=== PATIENT | female | born 1980 | race Caucasian/White ===

== ENCOUNTER 2022-07-15 02:37 | Observation (INO) ==
[2022-07-15] MEDS ORDERED: ONDANSETRON INJ 2 MG/ML 2 ML VIAL IV STA (03:01)
[2022-07-15] MEDS ORDERED: SODIUM CHLORIDE 0.9% 1000ML 1,000 ML IV SCH ×2 (03:15→14:33)
[2022-07-15] MEDS: MoRPHine SULFATE 4 MG/ML 1 ML CARP\\VIAL IV PRN ×3 (03:20→09:29)
[2022-07-15 03:27] LABS: Appearance Urine Turbid (Clear); Bacteria Urine Automated Negative (Negative); Basophils # (auto) 0.03 K/uL (0-0.2); Basophils % (auto) 0.2 %; Bilirubin Urine Negative (Negative); Blood Urine Negative (Negative); Cast Urine Automated 0 /lpf (0-5); Color Urine Yellow; Eosinophils # (auto) 0.02 K/uL (0-0.50); Eosinophils % (auto) 0.1 %; Glucose Urine UA Negative (Negative); Hematocrit (blood only) 39.7 % (37.0-47.0); Hemoglobin 13.5 g/dl (12.0-16.0); Immature Granulocytes # (auto) 0.05 K/uL (0.01-0.20); Immature Granulocytes % (auto) 0.3 %; Ketones Urine Negative (Negative); Leukocyte Esterase Urine Negative (Negative); Lymphocytes # (auto) 2.21 K/uL (1.2-3.4); Lymphocytes % (auto) 14.3 %; Mean Corpuscular Volume 88.2 fL (80.0-100.0); Mean Platelet Volume 8.9 fL (9.4-12.4); Monocytes % (auto) 6.5 %; Neutrophils # (auto) 12.11 K/uL (1.40-6.50); Neutrophils % (auto) 78.6 %; Nitrite Urine Negative (Negative); Platelet Count 316 K/uL (130-400); Protein Urine Negative (Negative); RBC Urine Automated 0-4 /hpf (0-4); RDW Coefficient of Variation 12.8 % (11.5-14.5); RDW Standard Deviation 41.4 fL (36.4-46.3); Specific Gravity Urine 1.014 (1.000-1.030); Urobilinogen Urine Negative (Negative); WBC Urine Automated 0 /hpf (0-5); White Blood Count 15.42 K/ul (4.8-10.8); pH Urine 8.5 (4.5-7.5)
[2022-07-15 03:43] LABS: Albumin Globulin Ratio 1.7 (0.9-2); Albumin Level 4.1 gm/dl (3.4-5.0); BUN Creatinine Ratio 18.7 (10-20); Bilirubin,Total 0.8 mg/dl (0.2-1.0); Calcium 9.3 mg/dl (8.6-10.3); Creatinine Clr Calc Pharmacy 74.3 ml/min; Est GFR (African American) 73.6 ml/min; Est GFR (Non-African American) 63.5 ml/min; Globulin 2.4 gm/dl (2.5-4.0); Magnesium 2.1 mg/dl (1.7-2.4); Potassium 4.1 mmol/L (3.5-5.1); Total Protein 6.5 gm/dl (6.0-8.3)
[2022-07-15 03:49] LABS: Pregnancy Test, Serum Negative (Negative)
[2022-07-15] MEDS ORDERED: HYDROmorphone INJ 0.5 MG/0.5 ML SYR IV STA ×2 (04:13→06:21)
--- NOTE | 2022-07-15 05:50 | CT Scan Report ---
Exam(s): CT ABDOMEN + PELVIS Without Contrast EXAM: CT Abdomen and Pelvis Without Intravenous Contrast CLINICAL HISTORY: Reason for exam: rlq abd pain. TECHNIQUE: Axial computed tomography images of the abdomen and pelvis without intravenous contrast. Automated exposure control was utilized for the study. A dose lowering technique was utilized adhering to the principles of ALARA. COMPARISON: No relevant prior studies available. FINDINGS: Lung bases: Unremarkable. No mass. No consolidation. ABDOMEN: Liver: Unremarkable. Gallbladder and bile ducts: Unremarkable. No calcified stones. No ductal dilation. Pancreas: Unremarkable. No ductal dilation. Spleen: Unremarkable. No splenomegaly. Adrenals: Unremarkable. No mass. Kidneys and ureters: Unremarkable. No obstructing stones. No hydronephrosis. Stomach and bowel: Unremarkable. No obstruction. No mucosal thickening. PELVIS: Appendix: No findings to suggest acute appendicitis. Bladder: Unremarkable. No stones. Reproductive: Unremarkable as visualized. ABDOMEN and PELVIS: Intraperitoneal space: Unremarkable. No free air. No significant fluid collection. Bones/joints: No acute fracture. No dislocation. Soft tissues: Unremarkable. Vasculature: Unremarkable. No abdominal aortic aneurysm. Lymph nodes: Unremarkable. No enlarged lymph nodes. Tubes, lines and devices: Intrauterine device seen in situ. IMPRESSION: No acute findings in the abdomen or pelvis. Electronically signed by: Chente Vance MD 07/15/22 05:49 AM
--- NOTE | 2022-07-15 06:10 | Ultrasound Report ---
Exam(s): US GALLBLADDER In the Susi 8 and that of the right EXAM: US Abdomen Limited, Gallbladder CLINICAL HISTORY: Reason for exam: elevated lipase. TECHNIQUE: Real-time ultrasound of the right upper quadrant with image documentation. COMPARISON: No relevant prior studies available. FINDINGS: Gallbladder: 3 mm echogenic focus in the gallbladder could represent a polyp. Unable to evaluate ultrasound Henley sign. No gallstones. Common bile duct: CBD caliber measures 3.7 mm. No stones. No dilation. Pancreas: Pancreatic duct caliber measures 2.8 mm in diameter. Right kidney: 3.4 cm diameter focal lesion seen in the right renal cortex which can be further assessed on contrast-enhanced MRI study. The right kidney is normal in size. No hydronephrosis or nephrolithiasis. IMPRESSION: 1. No evidence of acute cholecystitis 2. Suspected gallbladder polyp 3. Focal right renal cortical lesion which can further assessed on contrast-enhanced MRI study 4. Borderline pancreatic ductal prominence. Electronically signed by: Chente Vance MD 07/15/22 06:09 AM
--- NOTE | 2022-07-15 06:34 | Ultrasound Report ---
Exam(s): US PELVIS EXAM: US Pelvis Transabdominal, Complete CLINICAL HISTORY: Reason for exam: right side ab pain, not preg. TECHNIQUE: Real-time complete transabdominal pelvic ultrasound with image documentation. COMPARISON: No relevant prior studies available. FINDINGS: Uterus/cervix: Uterus measures 8.7 cm in length. Normal endometrial stripe thickness, measuring 2.2 mm. No myometrial mass. Right ovary: Right ovary measures 3.2 cm in length and contains a 2.3 cm follicle. Normal blood flow. Left ovary: Left ovary measures 3.2 cm in length and contains a 2.1 cm follicle. Normal blood flow. Free fluid: No free fluid. IMPRESSION: No acute pelvic abnormality identified Electronically signed by: Chente Vance MD 07/15/22 06:33 AM
--- NOTE | 2022-07-15 08:09 | History & Physical Report ---
Date of Service July 15, 2022 Assessment & Plan (1) RLQ abdominal pain: Plan: Patient with 12 hours of severe, acute, focused RLQ pain with anorexia, vomiting, and chills plus leukocytosis. Over-read of noncon CT scan shows prominent appendix. Significant pancreatic enzyme elevations are noted, and likely related to an episode 2-3 weeks ago of restarting semaglutide plus excess alcohol ingestion. Lifestyle factors are certainly present and pt is well aware; I suspect that although it's tempting to suspect acute pancreatitis by her labs and initial imaging, the exam of this patient is extremely consistent with appendicitis, and I think the pancreatitis is a "red tinoco" rather than the issue in this acute 12 hour episode. Not / no ectopic, no evidence of torsion or cyst on R ovary by imaging, exam is inconsistent with PID (no CMT identified) but GC/CT swab collected. General surgery consultation recommended and d/w Dr. Hays. 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 After euthanizing an animal at about 9pm last night and finally feeling able to rest a bit, she noted severe nausea and began vomiting. She also noted that when she had valsalva to vomit that first time, she had involuntary diarrhea at the same time. She tried to continue working a few more hours with ongoing nausea and vomiting, though diarrhea has not recurred. She was able to go home and lie down to fall asleep at midnight. However at 2:30am she was awakened by severe abdominal pain in the R lower quadrant of her abdomen. Considering she had not been home for three straight days and was very tired, she was surprised to have pain bad enough to wake her up, so this worried her. She became concerned that she had appendicitis and presented to ER. The patient was medicated for pain and nausea here, which helped the nausea significantly, but she continues to have pain in the RLQ. The last ingestion was a sip of sofía alicia at 2:15am, and prior to that was dinner at 2030 the prior night. That meal was shared with friends but so far no others have become ill. She did not take her temperature during any of this, but had chills yesterday evening during the hours when she was first noting nausea/diarrhea. She is unaware of any sick contacts. No pain with urination, nor frequency or h ematuria. No unusual ingestions or shared meals with others who have become ill that she knows of. Her recent bowel movements prior to the diarrhea last night were normal. Upon thinking back, she has had R lower back ache and dull pain just behind R hip for maybe 3 weeks that she is unsure is related or not. She has an IUD that results in amenorrhea so no clear LMP, and is sexually active with a male partner. To her belief, they are each monogamous with only each other since their last STD screenings. Her urine HCG here was negative today. No STD testing has been done yet this visit, but she is agreeable to testing. Recent medication changes include use of semaglutide ending about a year ago, then re-starting 23 days ago at 0.25mg and another dose 16 days ago at 0.5mg. She did work physically hard and then drink a significant amount of alcohol 15 days ago, the day after her bigger dose, and felt quite ill the next day (so, now 14 days ago). Symptoms were vomiting, abdominal pain, dull headache. This was memorable to her not just because it was , because it was significantly worse than a usual hangover or the usual effects she might expect to have from that amount of drinking. She also recalls that this was a very unusual opportunity to have a day off, for her, so that evening she went out again despite not feeling well and drank alcohol again. By the next day (Friday) she was well enough to function as normal in her equine clinic. As of 11 days ago, she was seen by her chiropractor Evans Thompson who mentioned that he believed she had ileocecal valve dysfunction based on his exam, and started her on "some digestive enzymes" that she is supposed to take anytime she eats anything that is cooked. The patient is not sure exactly what's in them and does not have the bottle with her today. She has used them inconsistently; usually when she eats dinner at home, not necessarily with lunch which is at work. She does note that her diet is generally poor and consists of whatever fast food or snack food is available at the clinic so she can keep working. She takes a brain-function vitamin. Additionally she uses Phentermine daily, though she ran out of this a week ago. Allergies Allergy/AdvReac Type Severity Reaction Status Date / Time No Known Allergies Allergy Verified 06/10/22 08:28 Home Medications Medication Instructions Recorded Confirmed Type levonorgestrel 21 mcg/24 hours (8 See Rx Instructions .Route .COMPLEX 01/27/19 07/15/22 History yrs) 52 mg intrauterine device (Mirena) calcium carbonate 600 mg-vitamin 1 cap PO DAILY 03/04/19 07/15/22 History D3 12.5 mcg (500 unit) capsule (Calcium 600 with Vitamin D3) ibuprofen 200 mg tablet 200 mg PO Q6H PRN Pain 03/04/19 07/15/22 History methocarbamol 500 mg tablet 500 mg PO TID PRN muscle spasms 03/04/19 07/15/22 History fluticasone propionate 50 1 spray intranasal DAILY PRN 05/04/21 07/15/22 History mcg/actuation nasal allergies spray,suspension albuterol sulfate 90 mcg/actuation 2 puff inhalation .COMPLEX PRN 11/13/21 07/15/22 Rx aerosol inhaler (ProAir HFA) shortness of breath or wheezing #8.5 grams phentermine 37.5 mg tablet 37.5 mg PO DAILY #30 tabs 07/08/22 07/15/22 Rx digestive enzymes 1 cap PO DAILY 07/15/22 07/15/22 History Patient History Medical History (Updated 07/15/22 @ 09:13 by Lizzie Langford MD) Anxiety Depression Rupture of ulnar collateral ligament of thumb Seizure Surgical History H/O LEEP History of ankle surgery History of hip surgery x 3 Hx of myringotomy Status post wisdom tooth extraction Family History Father Hypertension Mother Macular degeneration Brother No problems noted. Son No problems noted. Denies family history of Ovarian cancer Prostate cancer Myocardial infarction Breast cancer Colorectal cancer Social History Smoking Status: Never smoker Second Hand Exposure: No; Do You Dip or Chew Tobacco: No; Hx Alcohol Use: Yes Alcohol type: beer, wine and hard liquor Alcohol Intake Frequency: 4 or More x per/Week Alcohol Intake Frequency Comment: 5-6 drinks/week Hx Substance Use: No Preferred Language: Irish Communication Ability: Effective Visual Impairment: No Limitations Hearing Ability: Normal marital status: Current Living Situation: Family Current Living Situation Comment: w/son and boyfriend current occupational status: 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 Noted to voluntarily take a side-lying, knee-bent position or a back-lying, [id number] position, as these make her pain the least severe. Also noting worsening of pain as her medication wears off a bit. Constitutional: WD/WN, vitals as above + in distress Eyes: PERRL, conjunctivae normal, anicteric sclerae ENMT: external ear and nose normal, oropharynx normal Neck: supple Respiratory: normal respiratory effort and able to speak in complete sentences; no respiratory distress Cardiovascular: Rate/Rhythm: regular rate and regular rhythm Gastrointestinal (Abdomen): Minimal tenderness in upper abdomen, negative Henley's sign, no HSM. Moderate TTP in lower quadrants, with most significant TTP in RLQ, no guarding, but c/o +rebound on initial exam of that area. Does not, however, respond to jostling of bed or distracted movements. Back of torso without shadowing and without any CVA or flank ttp. Musculoskeletal: no cyanosis or clubbing, extremities motor strength 5/5 Skin: no rashes, warm and dry Psychiatric: A+Ox3, euthymic affect Genitourinary: Pelvic ultrasound reviewed, normal uterine size, IUD in situ, ovaries normal size bilaterally with confirmed doppler flow, small functional cysts and no free fluid. Bimanual pelvic exam with no CMT, but R adnexal fossa extremely tender. L normal, uterus nontender. STD swab collected. No abnormal discharge appreciated. CT reviewed and overnight read includes normal appendix, however daytime over- read shows prominent appendix. Non-contrast study does not allow eval of periappendiceal stranding etc. Results & Data Vital Signs (Past 12 Hours) Vital Signs Temp Pulse Pulse Resp BP BP Pulse Ox 07/15/22 07:57 67 20 135/83 98 07/15/22 06:30 65 20 123/83 100 07/15/22 06:01 71 21 130/73 97 07/15/22 05:46 65 18 125/69 98 07/15/22 04:30 63 19 134/82 95 07/15/22 03:48 58 L 14 148/90 H 98 07/15/22 04:09 58 L 07/15/22 02:40 98.2 F 85 19 166/101 H 99 O2 Del Method 07/15/22 07:57 Room Air 07/15/22 06:30 Room Air 07/15/22 06:01 Room Air 07/15/22 05:46 Room Air 07/15/22 04:30 Room Air 07/15/22 03:48 Room Air 07/15/22 04:09 07/15/22 02:40 Room Air Laboratory Results 07/15/22 07/15/22 07/15/22 Range/Units 04:20 03:10 03:10 WBC (4.8-10.8) K/ul RBC (4.20-5.40) M/uL Hgb (12.0-16.0) g/dl Hct (37.0-47.0) % MCV (80.0-100.0) fL MCH (25.0-34.0) pg MCHC (32.0-36.0) g/dL RDW Std Deviation (36.4-46.3) fL RDW Coeff of Danilo (11.5-14.5) % Plt Count (130-400) K/uL MPV (9.4-12.4) fL Immature Gran % (Auto) % Neut % (Auto) % Lymph % (Auto) % Woodruff % (Auto) % Eos % (Auto) % Baso % (Auto) % Neut # (Auto) (1.40-6.50) K/uL Lymph # (Auto) (1.2-3.4) K/uL Woodruff # (Auto) (0.11-0.59) K/uL Eos # (Auto) (0-0.50) K/uL Baso # (Auto) (0-0.2) K/uL Immature Gran # (Auto) (0.01-0.20) K/uL Sodium (136-145) mmol/L Potassium (3.5-5.1) mmol/L Chloride (98-107) mmol/L Carbon Dioxide (21-32) mmol/L Anion Gap (3-11) BUN (6-23) mg/dl Creatinine (0.6-1.2) mg/dl Est Cr Clr Drug Dosing ml/min Est GFR ( Amer) ml/min Est GFR (Non-Af Amer) ml/min BUN/Creatinine Ratio (10-20) Glucose (70-99(Fasting)) mg/dl Calcium (8.6-10.3) mg/dl Magnesium (1.7-2.4) mg/dl Total Bilirubin (0.2-1.0) mg/dl AST (13-39) U/L ALT (7-52) U/L Alkaline Phosphatase (34-104) U/L Total Protein (6.0-8.3) gm/dl Albumin (3.4-5.0) gm/dl Globulin (2.5-4.0) gm/dl Albumin/Globulin Ratio (0.9-2) Amylase (25-115) U/L Lipase (11-82) U/L HCG, Qual Negative (Negative) Urine Color Yellow Urine Appearance Turbid A (Clear) Urine pH 8.5 H (4.5-7.5) Ur Specific [place] 1.014 (1.000-1.030) Urine Protein Negative (Negative) Urine Glucose (UA) Negative (Negative) Urine Ketones Negative (Negative) Urine Blood Negative (Negative) Urine Nitrite Negative (Negative) Urine Bilirubin Negative (Negative) Urine Urobilinogen Negative (Negative) Ur Leukocyte Esterase Negative (Negative) Urine WBC (Auto) 0 (0-5) /hpf Urine RBC (Auto) 0-4 (0-4) /hpf U Hyaline Cast (Auto) 0 (0-5) /lpf U Epithel Cells (Auto) 5-10 H (0-5) /lpf Urine Bacteria (Auto) Negative (Negative) SARS-CoV-2, RNA, NAAT NEGATIVE (NEGATIVE) 07/15/22 07/15/22 Range/Units 03:10 03:10 WBC 15.42 H (4.8-10.8) K/ul RBC 4.50 (4.20-5.40) M/uL Hgb 13.5 (12.0-16.0) g/dl Hct 39.7 (37.0-47.0) % MCV 88.2 (80.0-100.0) fL MCH 30.0 (25.0-34.0) pg MCHC 34.0 (32.0-36.0) g/dL RDW Std Deviation 41.4 (36.4-46.3) fL RDW Coeff of Danilo 12.8 (11.5-14.5) % Plt Count 316 (130-400) K/uL MPV 8.9 L (9.4-12.4) fL Immature Gran % (Auto) 0.3 % Neut % (Auto) 78.6 % Lymph % (Auto) 14.3 % Woodruff % (Auto) 6.5 % Eos % (Auto) 0.1 % Baso % (Auto) 0.2 % Neut # (Auto) 12.11 H (1.40-6.50) K/uL Lymph # (Auto) 2.21 (1.2-3.4) K/uL Woodruff # (Auto) 1.00 H (0.11-0.59) K/uL Eos # (Auto) 0.02 (0-0.50) K/uL Baso # (Auto) 0.03 (0-0.2) K/uL Immature Gran # (Auto) 0.05 (0.01-0.20) K/uL Sodium 138 (136-145) mmol/L Potassium 4.1 (3.5-5.1) mmol/L Chloride 105 (98-107) mmol/L Carbon Dioxide 28 (21-32) mmol/L Anion Gap 5 (3-11) BUN 20 (6-23) mg/dl Creatinine 1.07 (0.6-1.2) mg/dl Est Cr Clr Drug Dosing 74.3 ml/min Est GFR ( Amer) 73.6 ml/min Est GFR (Non-Af Amer) 63.5 ml/min BUN/Creatinine Ratio 18.7 (10-20) Glucose 105 H (70-99(Fasting)) mg/dl Calcium 9.3 (8.6-10.3) mg/dl Magnesium 2.1 (1.7-2.4) mg/dl Total Bilirubin 0.8 (0.2-1.0) mg/dl AST 25 (13-39) U/L ALT 17 (7-52) U/L Alkaline Phosphatase 38 (34-104) U/L Total Protein 6.5 (6.0-8.3) gm/dl Albumin 4.1 (3.4-5.0) gm/dl Globulin 2.4 L (2.5-4.0) gm/dl Albumin/Globulin Ratio 1.7 (0.9-2) Amylase 176 H (25-115) U/L Lipase 406 H (11-82) U/L HCG, Qual (Negative) Urine Color Urine Appearance (Clear) Urine pH (4.5-7.5) Ur Specific [place] (1.000-1.030) Urine Protein (Negative) Urine Glucose (UA) (Negative) Urine Ketones (Negative) Urine Blood (Negative) Urine Nitrite (Negative) Urine Bilirubin (Negative) Urine Urobilinogen (Negative) Ur Leukocyte Esterase (Negative) Urine WBC (Auto) (0-5) /hpf Urine RBC (Auto) (0-4) /hpf U Hyaline Cast (Auto) (0-5) /lpf U Epithel Cells (Auto) (0-5) /lpf Urine Bacteria (Auto) (Negative) SARS-CoV-2, RNA, NAAT (NEGATIVE) Coding Level of Care Code 10490 ER DEPT VISIT MOD LVL 4 Diagnoses RLQ abdominal pain R10.31
--- NOTE | 2022-07-15 09:14 | Emergency Department Note ---
ED Visit Note Due to concern for location of pain despite elevated lipase and accompanying negative CT and ultrasounds, Dr. Langford was consulted to rule out gynecologic pathology. Dr. Langford saw and examined the patient in the emergency room and felt this was unlikely to be gynecologic. States patient describes central/periumbilical abdominal pain that migrated to the right lower quadrant. Patient did admit to heavy drinking a little over 2 weeks ago as well as restarting her Ozempic. While this likely may have contributed to her GI symptoms and even her pancreatitis, I her exam at this time is not strongly suggestive of pancreatitis. Patient has rebound tenderness and guards the right lower quadrant. I did asked Dr. Antunez radiology to review the CT again. Appendix was noted to be 9 mm. Due to lack of contrast, no further obvious findings of appendicitis were noted. I then contacted general surgery and spoke with Flor Osorio PA-C. She will come and evaluate the patient at bedside and discussed the case with Dr. Maciel. I updated Dr. Mosley, the original admitting physician on these changes. .
[2022-07-15] MEDS ORDERED: cefOXitin 2,000 MG/60 ML BAG IV STA (09:20)
--- NOTE | 2022-07-15 09:32 | History & Physical Report ---
Date of Service July 15, 2022 Assessment & Plan (1) Acute appendicitis: Plan: This is a 41yF with PMH of anxiety/depression who presents to the [facility] ED on 07/15/22 with RLQ pain rating it at 10/10 that woke her from her sleep this AM.. This was associated with nausea/vomiting and a bout of diarrhea. Due to severity of symptoms she came into the ER for further evaluation. Initially she had a CT a/p that was obtained that showed no acute abdominal abnormalities, but then was re-read by our radiology dept as concerning for acute appendicitis. Vital signs are stable. WBC noted to be elevated at 15, lipase 406. On exam abdomen is soft with tenderness to palpation in the RLQ. History, imaging, exam all consistent with acute appendicitis. We will continue patient NPO, give pre-op abx, and book her for the OR for laparoscopic appendectomy. Dr. Maciel will be by to obtain consent. History of Present Illness Primary Care Provider: Magda Londono MD This is a 41yF with PMH of anxiety/depression who presents to the [facility] ED on 07/15/22 with RLQ pain. Patient reports her pain woke her up in the sleep this AM rating it a 10/10 in the RLQ. This was associated with nausea/vomiting and a bout of diarrhea. Due to severity of symptoms she came into the ER for further evaluation. Initially she had a CT a/p that was obtained that showed no acute abdominal abnormalities. She was worked up with a pelvic US and gallbladder US that were also without acute issues. She was then evaluated by gynecology who performed an exam which revealed no CMT nor concern for gynecological issues outside of ongoing RLQ pain. The CT was re-read by our radiology dept in the AM who saw concern for a dilated appendix measuring up to 1cm and concern for acute appendicitis. Last had some sofía-alicia this AM at 2:30am. No prior abdominal surgical history. Allergies Allergy/AdvReac Type Severity Reaction Status Date / Time No Known Allergies Allergy Verified 06/10/22 08:28 Home Medications Medication Instructions Recorded Confirmed Type levonorgestrel 21 mcg/24 hours (8 See Rx Instructions .Route .COMPLEX 01/27/19 07/15/22 History yrs) 52 mg intrauterine device (Mirena) calcium carbonate 600 mg-vitamin 1 cap PO DAILY 03/04/19 07/15/22 History D3 12.5 mcg (500 unit) capsule (Calcium 600 with Vitamin D3) ibuprofen 200 mg tablet 200 mg PO Q6H PRN Pain 03/04/19 07/15/22 History methocarbamol 500 mg tablet 500 mg PO TID PRN muscle spasms 03/04/19 07/15/22 History fluticasone propionate 50 1 spray intranasal DAILY PRN 05/04/21 07/15/22 History mcg/actuation nasal allergies spray,suspension albuterol sulfate 90 mcg/actuation 2 puff inhalation .COMPLEX PRN 11/13/21 07/15/22 Rx aerosol inhaler (ProAir HFA) shortness of breath or wheezing #8.5 grams phentermine 37.5 mg tablet 37.5 mg PO DAILY #30 tabs 07/08/22 07/15/22 Rx digestive enzymes 1 cap PO DAILY 07/15/22 07/15/22 History Past Med/Surg History Medical History (Updated 07/15/22 @ 09:32 by Flor Escobar PA-C) Anxiety Depression Rupture of ulnar collateral ligament of thumb Seizure Surgical History H/O LEEP History of ankle surgery History of hip surgery x 3 Hx of myringotomy Status post wisdom tooth extraction Family History Father Hypertension Mother Macular degeneration Brother No problems noted. Son No problems noted. Denies family history of Ovarian cancer Prostate cancer Myocardial infarction Breast cancer Colorectal cancer Social History Smoking Status: Never smoker Second Hand Exposure: No; Do You Dip or Chew Tobacco: No; Hx Alcohol Use: Yes Alcohol type: beer, wine and hard liquor Alcohol Intake Fr equency: 4 or More x per/Week Alcohol Intake Frequency Comment: 5-6 drinks/week Hx Substance Use: No Preferred Language: Burmese Communication Ability: Effective Visual Impairment: No Limitations Hearing Ability: Normal marital status: Current Living Situation: Family Current Living Situation Comment: w/son and boyfriend current occupational status: 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 Safe at Home: Yes Childhood Exposure to Second-Hand Smoke: No Diet: regular Diet Comment: no specififc diet Dental Care, Regularly: Yes Physical Activity Frequency: Does not Exercise Seatbelt Use: always Sunscreen Use: Yes Do you think of yourself as: straight/heterosexual Review of Systems Constitutional: + chills; no fever Respiratory: no dyspnea Cardiovascular: no chest pain Gastrointestinal: + abdominal pain (RLQ), + nausea, + vomiting and + diarrhea/loose stools; no bloating Genitourinary: no urinary or bilingual recruiter complaints Physical Exam Physical Exam: awake/alert Constitutional: well developed and well nourished; no acute distress Respiratory: normal respiratory effort Cardiovascular: Rate/Rhythm: regular rhythm Gastrointestinal (Abdomen): Inspection/Auscultation: abdomen not distended Percussion/Palpation: + abdomen tender (RLQ ttp) and abdomen soft Results & Data Results & Data Vital Signs (Past 12 Hours) Vital Signs Temp Pulse Pulse Resp BP BP Pulse Ox 07/15/22 09:15 48 L 07/15/22 07:57 67 20 135/83 98 07/15/22 06:30 65 20 123/83 100 07/15/22 06:01 71 21 130/73 97 07/15/22 05:46 65 18 125/69 98 07/15/22 04:30 63 19 134/82 95 07/15/22 03:48 58 L 14 148/90 H 98 07/15/22 04:09 58 L 07/15/22 02:40 36.8 C 85 19 166/101 H 99 O2 Del Method 07/15/22 09:15 07/15/22 07:57 Room Air 07/15/22 06:30 Room Air 07/15/22 06:01 Room Air 07/15/22 05:46 Room Air 07/15/22 04:30 Room Air 07/15/22 03:48 Room Air 07/15/22 04:09 07/15/22 02:40 Room Air Diagnostic Findings ADDENDUM Addendum: Upon further review, note is made of mild appendiceal dilatation, measuring 1 cm. There may be minimal periappendiceal stranding. There is no free air or abscess. The findings are suspicious for acute appendicitis. Findings discussed with Dr. Hays at time of addendum. Electronically signed by: Aly Antunez M.D. 07/15/2022 9:02 AM ADDENDUM END Exam(s): CT ABDOMEN + PELVIS Without Contrast EXAM: CT Abdomen and Pelvis Without Intravenous Contrast CLINICAL HISTORY: Reason for exam: rlq abd pain. TECHNIQUE: Axial computed tomography images of the abdomen and pelvis without intravenous contrast. Automated exposure control was utilized for the study. A dose lowering technique was utilized adhering to the principles of ALARA. COMPARISON: No relevant prior studies available. FINDINGS: Lung bases: Unremarkable. No mass. No consolidation. ABDOMEN: Liver: Unremarkable. Gallbladder and bile ducts: Unremarkable. No calcified stones. No ductal dilation. Pancreas: Unremarkable. No ductal dilation. Spleen: Unremarkable. No splenomegaly. Adrenals: Unremarkable. No mass. Kidneys and ureters: Unremarkable. No obstructing stones. No hydronephrosis. Stomach and bowel: Unremarkable. No obstruction. No mucosal thickening. PELVIS: Appendix: No findings to suggest acute appendicitis. Bladder: Unremarkable. No stones. Reproductive: Unremarkable as visualized. ABDOMEN and PELVIS: Intraperitoneal space: Unremarkable. No free air. No significant fluid collection. Bones/joints: No acute fracture. No dislocation. Soft tissues: Unremarkable. Vasculature: Unremarkable. No abdominal aortic aneurysm. Lymph nodes: Unremarkable. No enlarged lymph nodes. Tubes, lines and devices: Intrauterine device seen in situ. IMPRESSION: No acute findings in the abdomen or pelvis. Electronically signed by: Chente Vance MD 07/15/22 05:49 AM Exam(s): US PELVIS EXAM: US Pelvis Transabdominal, Complete CLINICAL HISTORY: Reason for exam: right side ab pain, not preg. TECHNIQUE: Real-time complete transabdominal pelvic ultrasound with image documentation. COMPARISON: No relevant prior studies available. FINDINGS: Uterus/cervix: Uterus measures 8.7 cm in length. Normal endometrial stripe thickness, measuring 2.2 mm. No myometrial mass. Right ovary: Right ovary measures 3.2 cm in length and contains a 2.3 cm follicle. Normal blood flow. Left ovary: Left ovary measures 3.2 cm in length and contains a 2.1 cm follicle. Normal blood flow. Free fluid: No free fluid. IMPRESSION: No acute pelvic abnormality identified Electronically signed by: Chente Vance MD 07/15/22 06:33 AM Exam(s): US GALLBLADDER In the Susi 8 and that of the right EXAM: US Abdomen Limited, Gallbladder CLINICAL HISTORY: Reason for exam: elevated lipase. TECHNIQUE: Real-time ultrasound of the right upper quadrant with image documentation. COMPARISON: No relevant prior studies available. FINDINGS: Gallbladder: 3 mm echogenic focus in the gallbladder could represent a polyp. Unable to evaluate ultrasound Henley sign. No gallstones. Common bile duct: CBD caliber measures 3.7 mm. No stones. No dilation. Pancreas: Pancreatic duct caliber measures 2.8 mm in diameter. Right kidney: 3.4 cm diameter focal lesion seen in the right renal cortex which can be further assessed on contrast-enhanced MRI study. The right kidney is normal in size. No hydronephrosis or nephrolithiasis. IMPRESSION: 1. No evidence of acute cholecystitis 2. Suspected gallbladder polyp 3. Focal right renal cortical lesion which can further assessed on contrast-enhanced MRI study 4. Borderline pancreatic ductal prominence. Electronically signed by: Chente Vance MD 07/15/22 06:09 AM Supervising Physician Co-Signing Physician Notes Dr. Ram seen in the emergency room with findings consistent with acute appendicitis For laparoscopic appendectomy possible open appendectomy today PG Care Time/CCT Total # of Minutes Spent Total Time Spent with Patient: Total time spent is greater than 50% in coordination of care (as documented) at patient's floor/unit and/or counseling patient: Coding Level of Care Code 85839 INT INP/OBS CARE 1/40MIN Diagnoses Acute appendicitis K35.80
[2022-07-15] MEDS ORDERED: GLYCOPYRROLATE 0.2 MG/ML VIAL ONE (09:50)
[2022-07-15] MEDS ORDERED: NEOSTIGMINE METHYLSULFATE 1 MG/ML 10ML VIAL ONE (09:50)
[2022-07-15] MEDS ORDERED: ROCURONIUM BROMIDE 10 MG/ML 5 ML VIAL IV ONE (09:50)
[2022-07-15] MEDS ORDERED: ONDANSETRON INJ 2 MG/ML 2 ML VIAL ONE (09:50)
[2022-07-15] MEDS ORDERED: fentaNYL citrate PF 100 MCG/2 ML VIAL ONE ×2 (09:50→12:31)
[2022-07-15] MEDS ORDERED: DEXAMETHASONE SOD INJ 4 MG/ML VIAL ONE (09:50)
[2022-07-15] MEDS ORDERED: PROPOFOL IV EMULSION 10 MG/ML 20 ML VIAL IV ONE (09:50)
--- NOTE | 2022-07-15 10:48 | Anesthesiology Consultation ---
Date of Service July 15, 2022 Assessment & Plan Chart Review Chart Review: Acceptable Risk for Surgery Consults Requested none History Surgery Operation Date: 07/15/22 07:00 Proposed Procedures p Laparoscopic Appendectomy - Michele Maciel MD, FACS Height/Weight Height: 5 ft 8 in Weight: 77.6 kg Allergies Allergy/AdvReac Type Severity Reaction Status Date / Time No Known Allergies Allergy Verified 06/10/22 08:28 Medications Home Medications Medication Instructions Recorded Confirmed Last Taken levonorgestrel 21 mcg/24 hours (8 See Rx Instructions .Route .COMPLEX 01/27/19 07/15/22 Unknown yrs) 52 mg intrauterine device (Mirena) calcium carbonate 600 mg-vitamin 1 cap PO DAILY 03/04/19 07/15/22 07/14/22 D3 12.5 mcg (500 unit) capsule (Calcium 600 with Vitamin D3) ibuprofen 200 mg tablet 200 mg PO Q6H PRN Pain 03/04/19 07/15/22 2 Weeks Ago ~07/01/22 methocarbamol 500 mg tablet 500 mg PO TID PRN muscle spasms 03/04/19 07/15/22 1 Month Ago ~06/15/22 fluticasone propionate 50 1 spray intranasal DAILY PRN 05/04/21 07/15/22 1 Week Ago mcg/actuation nasal allergies ~07/08/22 spray,suspension albuterol sulfate 90 mcg/actuation 2 puff inhalation .COMPLEX PRN 11/13/21 07/15/22 2 Weeks Ago aerosol inhaler (ProAir HFA) shortness of breath or wheezing ~07/01/22 #8.5 grams phentermine 37.5 mg tablet 37.5 mg PO DAILY #30 tabs 07/08/22 07/15/22 1 Week Ago ~07/08/22 digestive enzymes 1 cap PO DAILY 07/15/22 07/15/22 Unknown Active Medications Generic Name Dose Route Start Last Admin Trade Name Freq PRN Reason Stop Dose Admin Morphine Sulfate 4 mg 07/15/22 03:01 07/15/22 09:29 Morphine Sulfate 4 Mg/Ml 1 Ml Carp\Vial IV 07/29/22 03:00 4 mg Q30M PRN Administration Pain Past Medical History Medical History (Updated 07/15/22 @ 09:32 by Flor Escobar PA-C) Anxiety Depression Rupture of ulnar collateral ligament of thumb Seizure Past Family History Family History Father Hypertension Mother Macular degeneration Brother No problems noted. Son No problems noted. Denies family history of Ovarian cancer Prostate cancer Myocardial infarction Breast cancer Colorectal cancer Past Surgical History Surgical History H/O LEEP History of ankle surgery History of hip surgery x 3 Hx of myringotomy Status post wisdom tooth extraction Social History Smoking Status: Never smoker Do You Dip or Chew Tobacco: No Hx Alcohol Use: Yes Alcohol type: beer, wine and hard liquor Hx Substance Use: No Physical Exam Vital Signs Last Vital Signs Temp 36.8 C 07/15/22 02:40 Pulse 66 07/15/22 09:31 Resp 20 07/15/22 09:31 BP 138/78 07/15/22 09:31 Pulse Ox 99 07/15/22 09:31 O2 Del Method Room Air 07/15/22 09:31 Testing Laboratory Results 07/15/22 03:10 07/15/22 03:10 Urine Color Yellow 07/15/22 03:10 Urine Appearance Turbid (Clear) A 07/15/22 03:10 Urine pH 8.5 (4.5-7.5) H 07/15/22 03:10 Ur Specific [place] 1.014 (1.000-1.030) 07/15/22 03:10 Urine Protein Negative (Negative) 07/15/22 03:10 Urine Glucose (UA) Negative (Negative) 07/15/22 03:10 Urine Ketones Negative (Negative) 07/15/22 03:10 Urine Nitrite Negative (Negative) 07/15/22 03:10 Ur Leukocyte Esterase Negative (Negative) 07/15/22 03:10 Urine WBC (Auto) 0 /hpf (0-5) 07/15/22 03:10 Urine RBC (Auto) 0-4 /hpf (0-4) 07/15/22 03:10 U Hyaline Cast (Auto) 0 /lpf (0-5) 07/15/22 03:10 U Epithel Cells (Auto) 5-10 /lpf (0-5) H 07/15/22 03:10 Urine Bacteria (Auto) Negative (Negative) 07/15/22 03:10
[2022-07-15] MEDS ORDERED: BUPIVACAINE 0.5 % 5 MG/1 ML MPF 30ML VIAL ONE (10:54)
[2022-07-15] MEDS ORDERED: oxyCODONE HCL IR 5 MG TAB (IMMEDIATE RELEASE) PO PRN (12:00)
[2022-07-15] MEDS ORDERED: ACETAMINOPHEN 1,000 MG/100 ML VIAL IV ONE (12:00)
--- NOTE | 2022-07-15 12:00 | Post Operative Brief Note ---
PG Immediate Post Op with CF Date of Surgery July 15, 2022 Pre & Post Diagnosis Operation Date: 07/15/22 07:00 Pre-Op Diagnosis: Acute appendicitis Post-Op Diagnosis: Acute appendicitis I identified the patient and participated in the time-out.: Yes Procedure Operation Date: 07/15/22 07:00 Actual Procedures p Laparoscopic Appendectomy - Michele Maciel MD, FACS Surgeon Michele Maciel MD, FACS Ribbon Blocker khushboo thomas Estimated Blood Loss 5 Findings Consistent with Post-Op Diagnosis Acute appendicitis with no abscess Specimens Specimen Description: A. Appendix
[2022-07-15] MEDS ORDERED: ACETAMINOPHEN 1000 MG/100 ML IV IV ONE (12:17)
[2022-07-15] MEDS ORDERED: PROMETHAZINE HCL 12.5 MG in SODIUM CHLORIDE 0.9% 50 ML IV PRN (12:19)
[2022-07-15] MEDS ORDERED: HYDROmorphone INJ 2 MG/ML SYR/VIAL IV PRN (12:19)
[2022-07-15] MEDS ORDERED: ONDANSETRON INJ 2 MG/ML 2 ML VIAL IV PRN ×2 (12:19→14:33)
[2022-07-15] MEDS ORDERED: ATROPINE SULFATE 0.1 MG/ML 10ML SYR IV PRN (12:19)
[2022-07-15] MEDS ORDERED: ePHEDrine sulfate 50 MG/ML AMP IV PRN (12:19)
--- NOTE | 2022-07-15 12:34 | Operative Report (OR) ---
DATE OF OPERATION: 07/15/2022. NAME OF OPERATION: Laparoscopic appendectomy. PREOPERATIVE DIAGNOSIS: Acute appendicitis. POSTOPERATIVE DIAGNOSIS: Acute appendicitis. STAFF SURGEON: Michele Maciel MD. SUPERVISOR POWDER AND PRIMER CANNING: Flor Escobar. ANESTHESIA: General. DESCRIPTION OF PROCEDURE: The patient was brought in the operating room, placed on the operating tab le in supine position. Her abdomen was prepped and draped in the usual fashion. Pneumatic stockings and orogastric tube were placed. 0.5% plain Marcaine was used to anesthetize all incisions. Incisi on was made above the umbilicus, carrying dissection down, placing a Veress needle producing pneumope ritoneum, placing an 11 mm port. Under visualization, a 5 mm port was placed suprapubically and then a 12 mm port in the left lower quadrant. The appendix was observed. It was retracted. It was very thickened approximately the distal two-thirds. The base was normal. The base was transected using an Endo-ROMAN stapler brown load and then a second brown load for the mesoappendix. I did have to plac e a clip near the mesentery at the base. At this point, the appendix was placed in an Endobag and it was removed through the left lower quadrant port site. After appropriate hemostasis and irrigation, all ports were removed. Fascia at the umbilicus and left lower quadrant closed using 0 Vicryl sutur e, and then the skin reapproximated using subcuticular 4-0 Monocryl. Steri-Strips in left lower quad rant. Dermabond on the suprapubic and umbilical sites. The patient was transferred to recovery room in stable condition. My economist research assistant helped with prepping, draping, removal of the appendix and closure of the wounds. Job ID: [id number]
[2022-07-15] MEDS: fentaNYL citrate PF 100 MCG/2 ML VIAL IV PRN ×2 (12:35→13:27)
--- NOTE | 2022-07-15 13:02 | Anesthesiology Progress Note ---
Date of Service July 15, 2022 Anesthesia Post Procedure Vital Signs Vital Signs: Temp Pulse Pulse Pulse Resp BP BP 07/15/22 12:55 52 L 17 141/76 H 07/15/22 12:45 36.4 C L 55 L 16 131/84 07/15/22 12:35 66 14 136/86 07/15/22 12:25 51 L 17 138/73 07/15/22 12:15 52 L 17 149/75 H 07/15/22 12:09 36.0 C L 69 14 144/82 H 07/15/22 11:02 37 C 56 L 18 140/83 07/15/22 09:31 66 20 07/15/22 09:15 48 L 07/15/22 07:57 67 20 07/15/22 06:30 65 20 123/83 07/15/22 06:01 71 21 130/73 07/15/22 05:46 65 18 125/69 07/15/22 04:30 63 19 134/82 07/15/22 03:48 58 L 14 148/90 H 07/15/22 04:09 58 L 07/15/22 02:40 36.8 C 85 19 166/101 H BP Pulse Ox O2 Del Method 07/15/22 12:55 96 Room Air 07/15/22 12:45 97 Room Air 07/15/22 12:35 100 Room Air 07/15/22 12:25 100 Room Air 07/15/22 12:15 98 Room Air 07/15/22 12:09 99 Room Air 07/15/22 11:02 97 Room Air 07/15/22 09:31 138/78 99 Room Air 07/15/22 09:15 07/15/22 07:57 135/83 98 Room Air 07/15/22 06:30 100 Room Air 07/15/22 06:01 97 Room Air 07/15/22 05:46 98 Room Air 07/15/22 04:30 95 Room Air 07/15/22 03:48 98 Room Air 07/15/22 04:09 07/15/22 02:40 99 Room Air Pain Intensity Abdomen: Pain Intensity: 4 Transfer of Care Handoff Completed per policy Notes Mental Status: alert / awake / arousable and participated in evaluation Patient Amnestic to Procedure: Yes Nausea / Vomiting: adequately controlled Pain: adequately controlled Airway Patency, RR, SpO2: stable & adequate BP & HR: stable & adequate Hydration State: stable & adequate Anesthetic Complications: no major complications apparent
[2022-07-15] MEDS ORDERED: HYDROmorphone INJ 0.5 MG/0.5 ML SYR IV PRN (14:33)
[2022-07-15] MEDS ORDERED: ALBUTEROL HFA 8 GM INHALER INH PRN (14:33)
[2022-07-15] MEDS: ACETAMINOPHEN 325 MG TAB PO PRN ×2 (15:40→22:57)
[2022-07-15] MEDS ORDERED: DOCUSATE SODIUM/SENNA 50/8.6MG TAB PO STA (15:49)
[2022-07-15] MEDS: oxyCODONE HCL IR 5 MG TAB (IMMEDIATE RELEASE) PO PRN (19:29)
--- NOTE | 2022-07-15 21:22 | Emergency Department Note ---
History of Present Illness General Chief complaint: Abdominal Pain Stated complaint: SEVERE RT LWR ABDOMINAL PAIN, VOMITING Time Seen by Provider: 07/15/22 02:49 History of Present Illness Maximum Pain Intensity: 7 This is a 41-year-old female presenting to the emergency department for ev aluation of severe right-sided abdominal pain. Patient symptoms began approximately 4 to 5 hours prior to arrival. The pain is causing nausea and vomiting. Patient rates her discomfort a 9/10 at worst. She has not had fevers or chills. No chest pain, chest tightness, shortness of breath. No difficulty using the bathroom. No history of abdominal surgery. She has an IUD and does not believe that she is . Home Medications Medication Instructions Recorded Confirmed Type levonorgestrel 21 mcg/24 hours (8 See Rx Instructions .Route .COMPLEX 01/27/19 07/15/22 History yrs) 52 mg intrauterine device (Mirena) calcium carbonate 600 mg-vitamin 1 cap PO DAILY 03/04/19 07/15/22 History D3 12.5 mcg (500 unit) capsule (Calcium 600 with Vitamin D3) ibuprofen 200 mg tablet 200 mg PO Q6H PRN Pain 03/04/19 07/15/22 History methocarbamol 500 mg tablet 500 mg PO TID PRN muscle spasms 03/04/19 07/15/22 History fluticasone propionate 50 1 spray intranasal DAILY PRN 05/04/21 07/15/22 History mcg/actuation nasal allergies spray,suspension albuterol sulfate 90 mcg/actuation 2 puff inhalation .COMPLEX PRN 11/13/21 07/15/22 Rx aerosol inhaler (ProAir HFA) shortness of breath or wheezing #8.5 grams phentermine 37.5 mg tablet 37.5 mg PO DAILY #30 tabs 07/08/22 07/15/22 Rx digestive enzymes 1 cap PO DAILY 07/15/22 07/15/22 History Allergies Allergy/AdvReac Type Severity Reaction Status Date / Time No Known Allergies Allergy Verified 06/10/22 08:28 Past Med/Surg History Medical History (Updated 07/15/22 @ 21:22 by Kaushik Jeffery PA-C) Anxiety Depression Rupture of ulnar collateral ligament of thumb Seizure Surgical History H/O LEEP History of ankle surgery History of hip surgery x 3 Hx of myringotomy Status post wisdom tooth extraction Family History Father Hypertension Mother Macular degeneration Brother No problems noted. Son No problems noted. 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: No Beliefs That Will Affect Care: None marital status: Current Living Situation: Family Current Living Situation Comment: w/son and current occupational status: employed 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 Other Information That Helps Us Care for You: No Feels Safe at Home: Yes Childhood Exposure to Second-Hand Smoke: No Diet: regular Diet Comment: no specififc diet Dental Care, Regularly: Yes Physical Activity Frequency: Does not Exercise Seatbelt Use: always Sunscreen Use: Yes Do you think of yourself as: straight/heterosexual Assistive Devices: None Review of Systems A total of 10 systems reviewed and were otherwise negative Physical Exam Vital Signs Vital Signs - 24 hr 07/15/22 02:40 07/15/22 04:09 07/15/22 03:48 Temperature 36.8 C Temperature Source Temporal Artery Scan Pulse Rate 85 58 L 58 L Pulse Rate [Apical] Pulse Rate [Right Finger] Pulse Rate from SpO2 Sensor 57 L Pulse Rhythm Regular Pulse Rhythm [Right Finger] Pulse Strength Normal Pulse Strength [Right Finger] Respiratory Rate 19 14 Respiratory Effort / Characteristics Non-Labored Spontaneous Respiratory Depth Normal Respiratory Pattern Regular Blood Pressure 166/101 H 148/90 H Blood Pressure [Left Arm] Blood Pressure [Right Arm] Blood Pressure Mean 122 109 Blood Pressure Mean [Left Arm] Blood Pressure Mean [Right Arm] Blood Pressure Position Sitting Blood Pressure Position [Left Arm] Pulse Oximetry 99 98 Oxygen Delivery Method Room Air Room Air Sepsis Recent Fever Within 48 Hours No Sepsis New/Unexplained Change in Mental Status N/A Sepsis Action Taken by Nursing No Action Required 07/15/22 04:30 07/15/22 05:46 07/15/22 06:01 Temperature Temperature Source Pulse Rate 63 65 71 Pulse Rate [Apical] Pulse Rate [Right Finger] Pulse Rate from SpO2 Sensor 62 65 71 Pulse Rhythm Pulse Rhythm [Right Finger] Pulse Strength Pulse Strength [Right Finger] Respiratory Rate 19 18 21 Respiratory Effort / Characteristics Respiratory Depth Respiratory Pattern Blood Pressure 134/82 125/69 130/73 Blood Pressure [Left Arm] Blood Pressure [Right Arm] Blood Pressure Mean 99 87 92 Blood Pressure Mean [Left Arm] Blood Pressure Mean [Right Arm] Blood Pressure Position Blood Pressure Position [Left Arm] Pulse Oximetry 95 98 97 Oxygen Delivery Method Room Air Room Air Room Air Sepsis Recent Fever Within 48 Hours Sepsis New/Unexplained Change in Mental Status Sepsis Action Taken by Nursing 07/15/22 06:30 07/15/22 07:57 07/15/22 09:15 Temperature Temperature Source Pulse Rate 65 48 L Pulse Rate [Apical] 67 Pulse Rate [Right Finger] Pulse Rate from SpO2 Sensor 65 Pulse Rhythm Pulse Rhythm [Right Finger] Pulse Strength Pulse Strength [Right Finger] Respiratory Rate 20 20 Respiratory Effort / Characteristics Non-Labored Respiratory Depth Normal Respiratory Pattern Blood Pressure 123/83 Blood Pressure [Left Arm] Blood Pressure [Right Arm] 135/83 Blood Pressure Mean 96 Blood Pressure Mean [Left Arm] Blood Pressure Mean [Right Arm] 100 Blood Pressure Position Blood Pressure Position [Left Arm] Pulse Oximetry 100 98 Oxygen Delivery Method Room Air Room Air Sepsis Recent Fever Within 48 Hours Sepsis New/Unexplained Change in Mental Status Sepsis Action Taken by Nursing 07/15/22 09:31 07/15/22 11:02 Temperature 37 C Temperature Source Oral Pulse Rate Pulse Rate [Apical] 66 Pulse Rate [Right Finger] 56 L Pulse Rate from SpO2 Sensor Pulse Rhythm Pulse Rhythm [Right Finger] Regular Pulse Strength Pulse Strength [Right Finger] Normal Respiratory Rate 20 18 Respiratory Effort / Characteristics Non-Labored Non-Labored Spontaneous Respiratory Depth Normal Normal Respiratory Pattern Regular Blood Pressure Blood Pressure [Left Arm] 140/83 Blood Pressure [Right Arm] 138/78 Blood Pressure Mean Blood Pressure Mean [Left Arm] 102 Blood Pressure Mean [Right Arm] 98 Blood Pressure Position Blood Pressure Position [Left Arm] Lying Pulse Oximetry 99 97 Oxygen Delivery Method Room Air Room Air Sepsis Recent Fever Within 48 Hours Sepsis New/Unexplained Change in Mental Status Sepsis Action Taken by Nursing VITALS: Vitals are noted on the nurse's note and reviewed by myself. Vital signs stable. GENERAL: Well-developed, well-nourished, white female, who is in moderate discomfort on arrival. She is cooperative. EARS: External ear normal. External auditory canals clear, tympanic membranes pearly disla without erythema or effusion bilaterally. EYES: Pupils equal round and reactive to light and accommodation. Conjunctivae without injection, sclerae without icterus. Extraocular movements intact. NOSE: Patent, turbinates without inflammation or discharge. MOUTH: Mucous membranes moist. Tonsils are not enlarged. Pharynx without erythema, blood, or exudate. Uvula midline. Airway patent. NECK: Supple without nuchal rigidity. No lymphadenopathy. No thyromegaly. C ervical spine is nontender. HEART: Regular rate and rhythm without murmurs gallops or rubs. LUNGS: Clear to auscultation bilaterally without wheezes, rales or rhonchi. No retractions or accessory muscle use. ABDOMEN: Positive normal bowel sounds x 4. Soft with right-sided tenderness. No CVA tenderness. Course Administered Medications Acetaminophen (Acetaminophen 325 Mg Tab) 650 mg PO Q4H PRN PRN Reason: Pain Stop: 08/14/22 14:32 Last Admin: 07/15/22 15:40 Dose: 650 mg Documented By: KEVIN Cefoxitin Sodium 1,000 mg/ (Dextrose) 60 mls @ 100 mls/hr IV Q6H MARY; Protocol Stop: 07/19/22 15:59 Last Infusion: 07/15/22 17:23 Dose: 0 mls/hr Documented By: Admin: 07/15/22 16:18 Dose: 100 mls/hr Documented By: ADAM Sodium Chloride (Nss 1000ml) 1,000 mls @ 50 mls/hr IV .Q20H MARY Stop: 08/14/22 14:32 Last Admin: 07/15/22 15:41 Dose: 50 mls/hr Documented By: KEVIN Oxycodone HCl (Oxycodone Hcl Ir 5 Mg Tab (Immediate Release)) 5 - 10 mg PO Q4HWA PRN PRN Reason: Pain Stop: 07/29/22 14:32 Last Admin: 07/15/22 19:29 Dose: 10 mg Documented By: PLF Discontinued Medications Acetaminophen (Acetaminophen 1000 Mg/100 Ml Iv) Confirm Administered Dose 1,000 mg IV .STK-MED ONE Stop: 07/15/22 12:18 Last Admin: 07/15/22 12:19 Dose: Not Given Documented By: WT Bupivacaine HCl (Bupivacaine 0.5 % 5 Mg/1 Ml Mpf 30ml Vial) Confirm Administered Dose 30 ml .ROUTE .STK-MED ONE Stop: 07/15/22 10:55 Last Admin: 07/15/22 11:55 Dose: 8 ml Documented By: DARIO Fentanyl Citrate (Fentanyl Citrate Pf 100 Mcg/2 Ml Vial) 50 mcg IV Q5M PRN PRN Reason: PACU Use Only-Pain Stop: 07/15/22 20:19 Last Admin: 07/15/22 13:27 Dose: 50 mcg Documented By: Admin: 07/15/22 12:35 Dose: 50 mcg Documented By: ALBERTO Fentanyl Citrate (Fentanyl Citrate Pf 100 Mcg/2 Ml Vial) Confirm Administered Dose 100 mcg .ROUTE .STK-MED ONE Stop: 07/15/22 12:32 Last Admin: 07/15/22 12:37 Dose: Not Given Documented By: ALBERTO Hydromorphone HCl (Hydromorphone Inj 0.5 Mg/0.5 Ml Syr) 0.5 mg IV NOW STA Stop: 07/15/22 04:14 Last Admin: 07/15/22 04:17 Dose: 0.5 mg Documented By: LADY Hydromorphone HCl (Hydromorphone Inj 0.5 Mg/0.5 Ml Syr) 0.5 mg IV NOW STA Stop: 07/15/22 06:22 Last Admin: 07/15/22 06:24 Dose: 0.5 mg Documented By: LADY Sodium Chloride (Nss 1000ml) 1,000 mls @ 999 mls/hr IV .Q1H1M MARY Stop: 07/15/22 04:15 Last Infusion: 07/15/22 04:20 Dose: 0 mls/hr Documented By: Admin: 07/15/22 03:18 Dose: 999 mls/hr Documented By: LADY Cefoxitin Sodium (Mefoxin) 2,000 mg in 60 mls @ 100 mls/hr IV NOW STA Stop: 07/15/22 09:55 Last Infusion: 07/15/22 10:44 Dose: 0 mls/hr Documented By: Admin: 07/15/22 10:14 Dose: 100 mls/hr Documented By: CAROLYN Acetaminophen (Ofirmev) 1,000 mg in 100 mls @ 400 mls/hr IV NOW ONE Stop: 07/15/22 12:14 Last Infusion: 07/15/22 13:28 Dose: 400 mls/hr Documented By: Admin: 07/15/22 12:18 Dose: 400 mls/hr Documented By: ALBERTO Morphine Sulfate (Morphine Sulfate 4 Mg/Ml 1 Ml Carp\Vial) 4 mg IV Q30M PRN PRN Reason: Pain Stop: 07/29/22 03:00 Last Admin: 07/15/22 09:29 Dose: 4 mg Documented By: Admin: 07/15/22 03:49 Dose: 4 mg Documented By: Admin: 07/15/22 03:20 Dose: 4 mg Documented By: LADY Ondansetron HCl (Ondansetron Inj 2 Mg/Ml 2 Ml Vial) 4 mg IV NOW STA Stop: 07/15/22 03:02 Last Admin: 07/15/22 03:21 Dose: 4 mg Documented By: LADY Senna/Docusate Sodium (Docusate Sodium/Senna 50/8.6mg Tab) 1 tab PO NOW STA Stop: 07/15/22 15:50 Last Admin: 07/15/22 16:18 Dose: 1 tab Documented By: ADAM Medical Decision Making Differential Diagnosis Differential diagnosis: Etiologies such as biliary colic, cholecystitis, hepatitis, pancreatitis, cardiac disease, pancreatitis, gastritis, peptic ulcer disease, appendicitis, cystitis, diverticulitis, mesenteric ischemia, inflammatory bowel disease, ileus, bowel obstruction, testicular/adnexal torsion, aortic pathology, shingles, as well as others were considered Laboratory Data 07/15/22 03:10 07/15/22 03:10 Lab Results 07/15/22 07/15/22 07/15/22 Range/Units 03:10 03:10 03:10 WBC 15.42 H (4.8-10.8) K/ul RBC 4.50 (4.20-5.40) M/uL Hgb 13.5 (12.0-16.0) g/dl Hct 39.7 (37.0-47.0) % MCV 88.2 (80.0-100.0) fL MCH 30.0 (25.0-34.0) pg MCHC 34.0 (32.0-36.0) g/dL RDW Std Deviation 41.4 (36.4-46.3) fL RDW Coeff of Danilo 12.8 (11.5-14.5) % Plt Count 316 (130-400) K/uL MPV 8.9 L (9.4-12.4) fL Immature Gran % (Auto) 0.3 % Neut % (Auto) 78.6 % Lymph % (Auto) 14.3 % [place] % (Auto) 6.5 % Eos % (Auto) 0.1 % Baso % (Auto) 0.2 % Neut # (Auto) 12.11 H (1.40-6.50) K/uL Lymph # (Auto) 2.21 (1.2-3.4) K/uL [place] # (Auto) 1.00 H (0.11-0.59) K/uL Eos # (Auto) 0.02 (0-0.50) K/uL Baso # (Auto) 0.03 (0-0.2) K/uL Immature Gran # (Auto) 0.05 (0.01-0.20) K/uL Sodium 138 (136-145) mmol/L Potassium 4.1 (3.5-5.1) mmol/L Chloride 105 (98-107) mmol/L Carbon Dioxide 28 (21-32) mmol/L Anion Gap 5 (3-11) BUN 20 (6-23) mg/dl Creatinine 1.07 (0.6-1.2) mg/dl Est Cr Clr Drug Dosing 74.3 ml/min Est GFR ( Amer) 73.6 ml/min Est GFR (Non-Af Amer) 63.5 ml/min BUN/Creatinine Ratio 18.7 (10-20) Glucose 105 H (70-99(Fasting)) mg/dl Calcium 9.3 (8.6-10.3) mg/dl Magnesium 2.1 (1.7-2.4) mg/dl Total Bilirubin 0.8 (0.2-1.0) mg/dl AST 25 (13-39) U/L ALT 17 (7-52) U/L Alkaline Phosphatase 38 (34-104) U/L Total Protein 6.5 (6.0-8.3) gm/dl Albumin 4.1 (3.4-5.0) gm/dl Globulin 2.4 L (2.5-4.0) gm/dl Albumin/Globulin Ratio 1.7 (0.9-2) Amylase 176 H (25-115) U/L Lipase 406 H (11-82) U/L HCG, Qual Negative (Negative) Urine Color Urine Appearance (Clear) Urine pH (4.5-7.5) Ur Specific [place] (1.000-1.030) Urine Protein (Negative) Urine Glucose (UA) (Negative) Urine Ketones (Negative) Urine Blood (Negative) Urine Nitrite (Negative) Urine Bilirubin (Negative) Urine Urobilinogen (Negative) Ur Leukocyte Esterase (Negative) Urine WBC (Auto) (0-5) /hpf Urine RBC (Auto) (0-4) /hpf U Hyaline Cast (Auto) (0-5) /lpf U Epithel Cells (Auto) (0-5) /lpf Urine Bacteria (Auto) (Negative) SARS-CoV-2, RNA, NAAT (NEGATIVE) 07/15/22 07/15/22 Range/Units 03:10 04:20 WBC (4.8-10.8) K/ul RBC (4.20-5.40) M/uL Hgb (12.0-16.0) g/dl Hct (37.0-47.0) % MCV (80.0-100.0) fL MCH (25.0-34.0) pg MCHC (32.0-36.0) g/dL RDW Std Deviation (36.4-46.3) fL RDW Coeff of Danilo (11.5-14.5) % Plt Count (130-400) K/uL MPV (9.4-12.4) fL Immature Gran % (Auto) % Neut % (Auto) % Lymph % (Auto) % [place] % (Auto) % Eos % (Auto) % Baso % (Auto) % Neut # (Auto) (1.40-6.50) K/uL Lymph # (Auto) (1.2-3.4) K/uL [place] # (Auto) (0.11-0.59) K/uL Eos # (Auto) (0-0.50) K/uL Baso # (Auto) (0-0.2) K/uL Immature Gran # (Auto) (0.01-0.20) K/uL Sodium (136-145) mmol/L Potassium (3.5-5.1) mmol/L Chloride (98-107) mmol/L Carbon Dioxide (21-32) mmol/L Anion Gap (3-11) BUN (6-23) mg/dl Creatinine (0.6-1.2) mg/dl Est Cr Clr Drug Dosing ml/min Est GFR ( Amer) ml/min Est GFR (Non-Af Amer) ml/min BUN/Creatinine Ratio (10-20) Glucose (70-99(Fasting)) mg/dl Calcium (8.6-10.3) mg/dl Magnesium (1.7-2.4) mg/dl Total Bilirubin (0.2-1.0) mg/dl AST (13-39) U/L ALT (7-52) U/L Alkaline Phosphatase (34-104) U/L Total Protein (6.0-8.3) gm/dl Albumin (3.4-5.0) gm/dl Globulin (2.5-4.0) gm/dl Albumin/Globulin Ratio (0.9-2) Amylase (25-115) U/L Lipase (11-82) U/L HCG, Qual (Negative) Urine Color Yellow Urine Appearance Turbid A (Clear) Urine pH 8.5 H (4.5-7.5) Ur Specific [place] 1.014 (1.000-1.030) Urine Protein Negative (Negative) Urine Glucose (UA) Negative (Negative) Urine Ketones Negative (Negative) Urine Blood Negative (Negative) Urine Nitrite Negative (Negative) Urine Bilirubin Negative (Negative) Urine Urobilinogen Negative (Negative) Ur Leukocyte Esterase Negative (Negative) Urine WBC (Auto) 0 (0-5) /hpf Urine RBC (Auto) 0-4 (0-4) /hpf U Hyaline Cast (Auto) 0 (0-5) /lpf U Epithel Cells (Auto) 5-10 H (0-5) /lpf Urine Bacteria (Auto) Negative (Negative) SARS-CoV-2, RNA, NAAT NEGATIVE (NEGATIVE) Imaging Data Radiologist's Impression: Abdomen/Pelvis CT 07/15/22 03:01 Exam(s): CT ABDOMEN + PELVIS Without Contrast EXAM: CT Abdomen and Pelvis Without Intravenous Contrast CLINICAL HISTORY: Reason for exam: rlq abd pain. TECHNIQUE: Axial computed tomography images of the abdomen and pelvis without intravenous contrast. Automated exposure control was utilized for the study. A dose lowering technique was utilized adhering to the principles of ALARA. COMPARISON: No relevant prior studies available. FINDINGS: Lung bases: Unremarkable. No mass. No consolidation. ABDOMEN: Liver: Unremarkable. Gallbladder and bile ducts: Unremarkable. No calcified stones. No ductal dilation. Pancreas: Unremarkable. No ductal dilation. Spleen: Unremarkable. No splenomegaly. Adrenals: Unremarkable. No mass. Kidneys and ureters: Unremarkable. No obstructing stones. No hydronephrosis. Stomach and bowel: Unremarkable. No obstruction. No mucosal thickening. PELVIS: Appendix: No findings to suggest acute appendicitis. Bladder: Unremarkable. No stones. Reproductive: Unremarkable as visualized. ABDOMEN and PELVIS: Intraperitoneal space: Unremarkable. No free air. No significant fluid collection. Bones/joints: No acute fracture. No dislocation. Soft tissues: Unremarkable. Vasculature: Unremarkable. No abdominal aortic aneurysm. Lymph nodes: Unremarkable. No enlarged lymph nodes. Tubes, lines and devices: Intrauterine device seen in situ. IMPRESSION: No acute findings in the abdomen or pelvis. Electronically signed by: Chente Vance MD 07/15/22 05:49 AM Pelvis Ultrasound 07/15/22 04:13 Exam(s): US PELVIS EXAM: US Pelvis Transabdominal, Complete CLINICAL HISTORY: Reason for exam: right side ab pain, not preg. TECHNIQUE: Real-time complete transabdominal pelvic ultrasound with image documentation. COMPARISON: No relevant prior studies available. FINDINGS: Uterus/cervix: Uterus measures 8.7 cm in length. Normal endometrial stripe thickness, measuring 2.2 mm. No myometrial mass. Right ovary: Right ovary measures 3.2 cm in length and contains a 2.3 cm follicle. Normal blood flow. Left ovary: Left ovary measures 3.2 cm in length and contains a 2.1 cm follicle. Normal blood flow. Free fluid: No free fluid. IMPRESSION: No acute pelvic abnormality identified Electronically signed by: Chente Vance MD 07/15/22 06:33 AM Gallbladder Ultrasound 07/15/22 04:14 Exam(s): US GALLBLADDER In the Susi 8 and that of the right EXAM: US Abdomen Limited, Gallbladder CLINICAL HISTORY: Reason for exam: elevated lipase. TECHNIQUE: Real-time ultrasound of the right upper quadrant with image documentation. COMPARISON: No relevant prior studies available. FINDINGS: Gallbladder: 3 mm echogenic focus in the gallbladder could represent a polyp. Unable to evaluate ultrasound Henley sign. No gallstones. Common bile duct: CBD caliber measures 3.7 mm. No stones. No dilation. Pancreas: Pancreatic duct caliber measures 2.8 mm in diameter. Right kidney: 3.4 cm diameter focal lesion seen in the right renal cortex which can be further assessed on contrast-enhanced MRI study. The right kidney is normal in size. No hydronephrosis or nephrolithiasis. IMPRESSION: 1. No evidence of acute cholecystitis 2. Suspected gallbladder polyp 3. Focal right renal cortical lesion which can further assessed on contrast-enhanced MRI study 4. Borderline pancreatic ductal prominence. Electronically signed by: Chente Vance MD 07/15/22 06:09 AM MDM Narrative Physical exam and history were performed. Nursing notes, EMR, and Medication List were personally reviewed. No social concerns were identified as barriers to patients care. Patient appears to have abdominal pain bringing her to the ER. She appears quite uncomfortable. IV access was established and labs were obtained. She was hydrated with normal saline and given IV morphine and IV Zofran. She ultimately was transition to IV Dilaudid as morphine was not providing significant relief. The patient was sent to CT scan on arrival due to the level of pain. Patient's blood work is as above and was reviewed. She does have an elevated white count of 15,000. Lipase and amylase are both elevated which may suggest pancreatitis. She is not . Urine is without distinct evidence of infection. Transaminases are not diagnostic. I did review CT scan after being performed and did not see obvious kidney stone myself. Because of this she went from CT scan to ultrasound for both right upper quadrant and pelvic ultrasounds. The studies were all ultimately read by [facility] as essentially normal. Overall the patient does not appear well for discharge home. She has pancreatitis on labs and I do not have a distinct reason for her elevated white count. The patient is reliable and uncomfortable. The case was ultimately discussed with the on-call hospitalist team. Please see their dictation for further patient course, plan, disposition. The chart was completed utilizing Dragon Speech Voice Recognition Software. Grammatical errors, random word insertions, pronoun errors, and incomplete sentences are an occasional consequence of this system due to software limitations, ambient noise, and hardware issues. Any formal questions or concerns about the content, text, or information contained within the body of this dictation should be directly addressed to the provider for clarification. . Impression & Plan Abdominal pain, Elevated amylase and lipase, Nausea & vomiting Discharge Plan Visit Data Chief Complaint: Abdominal Pain Stated Complaint: SEVERE RT LWR ABDOMINAL PAIN, VOMITING ED Provider: [facility] Midlevel Provider: Kaushik Jeffery Discharge Problem: Abdominal pain, Elevated amylase and lipase, Nausea & vomiting Patient Disposition: Admitted As Inpatient Discharge Instructions Interventions: ED Discharge Assessment Last Done: 07/15/22 10:30
[2022-07-15] MEDS: MAGNESIUM HYDROXIDE SUSP 30 ML UDC PO SCH (22:57)
[2022-07-16] MEDS: oxyCODONE HCL IR 5 MG TAB (IMMEDIATE RELEASE) PO PRN ×2 (03:44→07:31)
--- NOTE | 2022-07-16 06:36 | Surgery Progress Note ---
Date of Service July 16, 2022 Assessment & Plan (1) S/P laparoscopic appendectomy: Plan: Patient doing well We will follow-up in office and check labs with history of possible pancreatitis We will plan discharge home later this morning Follow-up in the office Admission and Anticipated Discharge Date Admission Date: July 15, 2022 Results & Data Vital Signs (Past 12 Hours) Vital Signs Temp Pulse Resp BP Pulse Ox O2 Del Method 07/16/22 04:14 37.2 C 84 16 155/98 H 98 Room Air 07/15/22 21:00 Room Air 07/15/22 22:41 37.5 C 78 16 130/81 95 Room Air 07/15/22 19:36 36.7 C 16 148/91 H 96 Room Air PG Care Time/CCT Total # of Minutes Spent Total Time Spent with Patient: Total time spent is greater than 50% in coordination of care (as documented) at patient's floor/unit and/or counseling patient: Coding Level of Care Code 19289 Post Operative Follow-Up Diagnoses S/P laparoscopic appendectomy Z90.49
[2022-07-16] MEDS: ACETAMINOPHEN 325 MG TAB PO PRN (07:30)
[2022-07-16] MEDS: MAGNESIUM HYDROXIDE SUSP 30 ML UDC PO SCH (07:32)
[2022-07-16] MEDS ORDERED: NON-FORMULARY MEDICATION (Phentermine 37.5 mg tablet) PO SCH (09:00)
[2022-07-16 13:36] LABS: GC (Neis gonorrhoeae) RNA Not Detected (NotDetected)
--- NOTE | 2022-07-17 15:10 | Discharge Summary ---
Date of Service July 16, 2022 Admission HPI Per Admitting Provider This is a 41yF with PMH of anxiety/depression who presents to the [facility] ED on 07/15/22 with RLQ pain. Patient reports her pain woke her up in the sleep this AM rating it a 10/10 in the RLQ. This was associated with nausea/vomiting and a bout of diarrhea. Due to severity of symptoms she came into the ER for further evaluation. Initially she had a CT a/p that was obtained that showed no acute abdominal abnormalities. She was worked up with a pelvic US and gallbladder US that were also without acute issues. She was then evaluated by gynecology who performed an exam which revealed no CMT nor concern for gynecological issues outside of ongoing RLQ pain. The CT was re-read by our radiology dept in the AM who saw concern for a dilated appendix measuring up to 1cm and concern for acute appendicitis. Last had some sofía-alicia this AM at 2:30am. No prior abdominal surgical history. Principal Diagnosis acute appendicitis Discharge Exam awake/alert Gastrointestinal (Abdomen) Inspection/Auscultation: + abdominal surgical incision (c/d/i) Percussion/Palpation: abdomen soft Discharge Data Allergies Allergy/AdvReac Type Severity Reaction Status Date / Time No Known Allergies Allergy Verified 06/10/22 08:28 Consultations 07/15/22 06:55 ED Decision to Admit Stat 07/15/22 07:44 Consult Obstetrics Stat 07/15/22 09:07 Consult General Surgery Stat Procedures Performed Operation Date: 07/15/22 07:00 Actual Procedures p Laparoscopic Appendectomy - Michele Maciel MD, FACS Ordered Studies 07/15/22 03:01 CT abd pelvis wo con Stat 07/15/22 04:13 US pelvic complete Stat 07/15/22 04:14 US gallbladder Stat Hospital Course (1) Acute appendicitis: This is a 41yF who presented to the [facility] ED on 07/15/22 with abdominal pain. Workup in the ED showed a WBC of [address] a/p concerning for acute appendicitis. The patient was tender to palpation in the RLQ. Patient made NPO with IVF and booked for the OR. On 07/15 the patient went to the OR with Dr. Maciel for a laparoscopic appendectomy. The patient tolerated the procedure well, see operative report for full details. Post operatively the patient's diet was advanced, pain managed on prn meds, and incisions clean/dry/intact. On POD#1 the patient was deemed stable for discharge to home. Total Time Total Time Spent Total Time Spent (In Minutes): 10 Discharge Plan Discharge Items Patient Disposition: Home - Self-Care Reason For Visit: SEVERE RT LWR ABDOMINAL PAIN, VOMITING Discharge Diagnosis: laparoscopic appendectomy Activity: Per Instructions section Activity Comment: light activity for 3-4 weeks Lifting: No more than 10 pounds Bathing Comment: may shower starting 07/16/22; no soaking in tubs/pools x 2 weeks Sexual Activity: When tolerated Exercise/Sports: Wait until after follow-up appointment Exercise Comment: wait 3-4 weeks Non-emergency contact: Primary Care Provider and Surgeon Call non-emergency contact if: you have any medication questions, your symptoms worsen, your pain is not controlled, your pain is concerning for you, you have a fever, your temperature is above 101.5, your wound has increased redness, your wound has increased drainage and your wound pain has increased Follow-up/Referrals: Michele Maciel MD, FACS [Physician] - 07/30/22 9:00 am Magda Londono MD [Primary Care Provider] - Diet: Regular Addtl Attending Provider Instructions: SPECIAL CARE INSTRUCTIONS: * Cover incisions and change daily for comfort/drainage. May leave uncovered with Dermabond * May use ibuprofen for pain as tolerated. * Expect some swelling and bruising. Call your doctor if: * Temperature above 101 degrees * Pain not relieved by pain medicine ordered * There is increased drainage or redness from any incision * You have any unanswered questions or concerns [phone]. FOLLOW UP VISIT: If not already scheduled, please call the office for a follow-up visit. For 2 weeksno sutures to remove OFFICE PHONE NUMBER: Dr. Maciel Office Pending Studies at Discharge: Yes Studies:: surgical pathology Stand-Alone Forms: My [facility] Medications and DC Order Prescriptions: New oxycodone 5 mg tablet 5 - 10 mg PO Q6H PRN (Reason: pain) Qty: 30 0RF Continued albuterol sulfate [ProAir HFA] 90 mcg/actuation HFA aerosol inhaler 2 puff INH .COMPLEX PRN (Reason: shortness of breath or wheezing) Qty: 8.5 3RF Rx Instructions: 2 puff inhalation q4-6 hrs PRN; calcium carbonate-vitamin D3 [Calcium 600 with Vitamin D3] 600 mg(1,500mg) - 500 unit capsule 1 cap PO DAILY Mirena 20 mcg/24 hours (5 yrs) 52 mg intrauterine device See Rx Instructions .ROUTE .COMPLEX Rx Instructions: IUD ibuprofen 200 mg tablet 200 mg PO Q6H PRN (Reason: Pain) methocarbamol 500 mg tablet 500 mg PO TID PRN (Reason: muscle spasms) fluticasone propionate 50 mcg/actuation spray,suspension 1 spray INTNAS DAILY PRN (Reason: allergies) Wegovy 0.25 mg/0.5 mL pen injector See Rx Instructions .ROUTE .COMPLEX 0RF Rx Instructions: Patient stated that each week she either injects 0.25mg or 0.5mg- just depends. Last dose she had was on June 28 and it was 0.5mg phentermine 37.5 mg tablet 37.5 mg PO DAILY Qty: 30 1RF digestive enzymes Capsule 1 cap PO DAILY Rx Instructions: administer with food; swallow whole; do not crush/chew/dissolve/break/cut Discharge Orders: Discharge Order (Routine); Ordered 07/16/22 Ordered By: Michele Thompson/Other Patient Handouts: Appendectomy Lap Dc Admission Data Admit Date/Time: 07/15/22 12:07 Attending Provider: Michele Maciel Admit Provider: Michele Maciel Primary Care Provider: Magda Londono Other Providers: Lizzie Langford ; Michele Maciel ; Gatito Fischer ; Ingris Hall Jonathan R ; Michele Retana ; Vladislav Overton ; Brian Robbins ; Vasile Mijares ; Brenda Royal ; Monse Rosa ; Fei Diaz ; Bennett Perdomo ; Renetta Patel ; Chucho Au ; Katie Gonzales ; Ameena Díaz ; Cameron Zambrano ; Giorgi Trammell ; Jose Carlos Mares ; Jacqui Castro ; Ingris Anaya ; Adrienne Antonio ; Ned Wilcox ; Osvaldo James ; Chris Shea ; Ashely Vance ; Donato Johnson ; Tyree Singer ; Armida Sanchez ; Lyle Mosley ; Brian Guerrero ; Laura Burnette ; Ronaldo Bryant ; Jeremy Medina ; Suzie Park ; Magdiel Núñez ; Rosa Salazar ; Mirela Fernandez ; Michele Villa Other Interventions: Discharge Summary Assessment (RN) Last Done: 07/16/22 09:18 Coding Level of Care Code 58765 IN/OBS DISCH 30 MIN/LESS Diagnoses Acute appendicitis K35.80
--- NOTE | 2022-07-18 03:14 | Discharge Summary (DS) ---
DATE OF ADMISSION: 07/15/2022. DATE OF DISCHARGE: 07/16/2022. PRINCIPAL DIAGNOSIS: Acute appendicitis. PROCEDURE: The patient underwent laparoscopic appendectomy. HISTORY OF PRESENT ILLNESS: The patient is a 41-year-old female presenting to the Emergency Room wit h abdominal pain, which localized to the right lower quadrant. After exams and studies it was felt t hat she had acute appendicitis. On 07/15/2022, she was taken to the operating room. She underwent la paroscopic appendectomy showing acute appendicitis. She tolerated the procedure well and did well ov [facility] and was felt stable for discharge on 07/16/2022 to be followed in the surgical clinic within 1-2 weeks. Job ID: [id number]
== END 2022-07-16 10:39 | disposition home or self-care (01) ==
LOC: ED 02:37 → ASU 10:45 → 3W 10:45

== ENCOUNTER 2022-09-10 08:30 | Observation (INO) ==
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
[~2022-09-10 08:30] MED LIST: LR 15ML/HR IV SCH; ceFAZolin 2000MG 2,000 MG/15 ML SYR IV SCH
[2022-09-10] MEDS ORDERED: ePHEDrine sulfate 50 MG/ML AMP IV PRN (09:29)
[2022-09-10] MEDS ORDERED: ATROPINE SULFATE 0.1 MG/ML 10ML SYR IV PRN (09:29)
[2022-09-10] MEDS ORDERED: ONDANSETRON INJ 2 MG/ML 2 ML VIAL IV PRN ×2 (09:29→13:50)
--- NOTE | 2022-09-10 09:51 | History & Physical Bridge Note ---
Date of Service September 10, 2022 History & Physical Bridge Note I have examined the patient, reviewed the History & Physical and in the interval since the performance of the History & Physical I have noted the following changes of clinical significance: no changes noted
[2022-09-10] MEDS ORDERED: BUPIVACAINE 0.5 % 5 MG/1 ML MPF 30ML VIAL ONE (09:54)
[2022-09-10] MEDS ORDERED: MIDAZOLAM HCL 1 MG/ML 2ML VIAL ONE (10:05)
[2022-09-10] MEDS ORDERED: fentaNYL citrate PF 100 MCG/2 ML VIAL ONE (10:05)
[2022-09-10] MEDS ORDERED: GLYCOPYRROLATE 0.2 MG/ML VIAL ONE (10:06)
[2022-09-10] MEDS ORDERED: ROCURONIUM BROMIDE 10 MG/ML 5 ML VIAL IV ONE ×2 (10:06→10:46)
[2022-09-10] MEDS ORDERED: DEXAMETHASONE SOD INJ 4 MG/ML VIAL ONE (10:06)
[2022-09-10] MEDS ORDERED: LIDOCAINE 2% 2 ML VIAL/AMP(20MG/ML) INFIL ONE (10:06)
[2022-09-10] MEDS ORDERED: ONDANSETRON INJ 2 MG/ML 2 ML VIAL ONE (10:06)
[2022-09-10] MEDS ORDERED: PROPOFOL IV EMULSION 10 MG/ML 20 ML VIAL IV ONE (10:06)
[2022-09-10] MEDS ORDERED: diphenhydrAMINE 50 MG/ML VIAL ONE (10:07)
[2022-09-10] MEDS ORDERED: SUGAMMADEX SODIUM 200 MG/2 ML VIAL IV ONE (11:11)
--- NOTE | 2022-09-10 11:48 | Operative Report ---
PG Post Operative Report Pre & Post Diagnosis Operation Date: 09/10/22 09:40 <No data on this case meets the specified criteria> I identified the patient and participated in the time-out.: Yes Procedure Operation Date: 09/10/22 09:40 <No data on this case meets the specified criteria> Surgeon Lito Grayson MD [employer] Marga Wong Estimated Blood Loss 25 Findings Consistent with Post-Op Diagnosis Specimens right kidney Description of Procedure Patient was identified in the preoperative holding area and appropriate informed consents reviewed and completed and she was transported the operating suite. Upon arrival she received Ancef and general anesthesia. She was placed in the left side down right side up lateral decubitus position and sterilely prepped and draped in standard fashion. Bed was flexed and she was padded appropriately. To begin the case I marked a Aguilar style incision on the right lower quadrant and incised through the skin. I carried this down to the external oblique fascia which was opened sharply. I did divide the muscle. I then opened the internal oblique fascia in the same manner. Ultimately the transversalis was opened and the peritoneum was pierced sharply and a finger sweep performed. There were no adhesions. I then opened the peritoneum for the length of the incision before placing a GelPort retractor. I insufflated the abdomen by placing a 12 mm trocar through the GelPort. Inspection revealed a clear abdominal wall without evidence of adhesions. Of note, she recently had an appendectomy and there was some concern about a small umbilical hernia. I inspected the umbilicus and there was no evidence of a hernia from the inner aspect. I suspect the CT findings may have just been resolution of her external incision at this port site. There was no hernia defects. I then placed 212 mm home based assistant ports at the lateral border of the rectus muscle, the first was approximately 4 fingerbreadths below the costal margin and the second approximately 8 cm inferior. After incising the skin I placed both of these ports directly onto my hand after placing my hand through the HandPort. To begin the surgical portion of the case by incising the white line of Toldt medializing the colon off of the medial aspect of the kidney. I additionally incised the peritoneum lateral to the kidney and superior to the kidney but inferior to the liver. After medializing the colon I was able to kocherized the duodenum and expose the underlying IVC. The gonadal vein was identified piercing into the IVC. Just lateral to it I dissected a plane onto the psoas muscle and was able to elevate the kidney placing the hilar structures on stretch. We carefully walked up the lateral aspect of the IVC until I reached the inferior edge of the vein. I could palpate the artery immediately behind it. I cleared an area just above the vein and I controlled the hilar structures with a solitary staple load. Hemostasis was excellent. I then continued to divide the attachments just above the hilar structures utilizing the harmonic scalpel and spared the majority of the adrenal gland. I connected to my prior dissection in the superior area and completed my posterior and lateral dissection utilizing the harmonic. At the inferior aspect of the kidney I was able to control the ureter with a harmonic scalpel. Of note, hemostasis was excellent. The specimen was extracted through the GelPort. I repositioned the colon into the right lateral portion of the abdominal cavity. I closed the 2 - 12 mm ports using a Osvaldo-Lynnette device and a 0 Vicryl suture. The main hand port was closed in multiple layers with 0 Vicryl for the transversalis fascia followed by 0 PDS through the internal and external oblique fascia as independently. Skin was closed with 4-0 Monocryl. All layers were infiltrated with half percent Marcaine as was the skin. The 2-12 mm home based assistant ports were both closed with 4-0 Monocryl and the skin. Dermabond was placed over all. She was reversed of anesthesia and taken to the recovery room in stable condition. There were no complications. Marga Wong assisted from incision to closure I attest to the content of the Intraoperative Record and any orders documented therein. Any exceptions are noted below.
[2022-09-10] MEDS: fentaNYL citrate PF 100 MCG/2 ML VIAL IV PRN ×4 (12:08→13:10)
[2022-09-10] MEDS: HYDROmorphone INJ 2 MG/ML SYR/VIAL IV PRN ×6 (12:16→13:11)
[2022-09-10 12:49] LABS: Basophils # (auto) 0.05 K/uL (0-0.2); Basophils % (auto) 0.5 %; Eosinophils # (auto) 0.04 K/uL (0-0.50); Eosinophils % (auto) 0.4 %; Hematocrit (blood only) 41.3 % (37.0-47.0); Hemoglobin 13.9 g/dl (12.0-16.0); Immature Granulocytes # (auto) 0.03 K/uL (0.01-0.20); Immature Granulocytes % (auto) 0.3 %; Lymphocytes # (auto) 1.77 K/uL (1.2-3.4); Mean Corpuscular Hemoglobin 28.9 pg (25.0-34.0); Mean Corpuscular Hgb Conc 33.7 g/dL (32.0-36.0); Mean Corpuscular Volume 85.9 fL (80.0-100.0); Mean Platelet Volume 9.3 fL (9.4-12.4); Monocytes # (auto) 0.39 K/uL (0.11-0.59); Neutrophils # (auto) 7.55 K/uL (1.40-6.50); Neutrophils % (auto) 76.8 %; Platelet Count 296 K/uL (130-400); RDW Standard Deviation 40.5 fL (36.4-46.3); Red Blood Count 4.81 M/uL (4.20-5.40); White Blood Count 9.83 K/ul (4.8-10.8)
[2022-09-10 13:04] LABS: BUN Creatinine Ratio 10.5 (10-20); Calcium 8.9 mg/dl (8.6-10.3); Est GFR (Non-African American) 73.4 ml/min; Potassium 3.6 mmol/L (3.5-5.1)
[2022-09-10] MEDS ORDERED: HYDROmorphone INJ 0.5 MG/0.5 ML SYR IV PRN (13:17)
[2022-09-10] MEDS ORDERED: MoRPHine SULFATE 2 MG/ML CARP IV PRN (13:50)
[2022-09-10] MEDS ORDERED: ALBUTEROL HFA 8 GM INHALER INH PRN (13:50)
[2022-09-10] MEDS ORDERED: oxyCODONE HCL IR 5 MG TAB (IMMEDIATE RELEASE) PO PRN ×2 (13:50)
--- NOTE | 2022-09-10 13:59 | Anesthesiology Progress Note ---
Date of Service September 10, 2022 Anesthesia Post Procedure Vital Signs Vital Signs: Temp Pulse Pulse Resp BP Pulse Ox O2 Del Method 09/10/22 13:40 36.6 C 63 18 141/89 H 100 Room Air 09/10/22 13:20 36.4 C L 59 L 18 138/82 99 Nasal Cannula 09/10/22 13:10 36.4 C L 59 L 20 158/84 H 99 Room Air 09/10/22 13:00 54 L 24 158/84 H 99 Room Air 09/10/22 12:50 55 L 24 138/92 99 Room Air 09/10/22 12:40 48 L 22 173/90 H 98 Room Air 09/10/22 12:30 52 L 16 155/89 H 100 Oxymask 09/10/22 12:20 48 L 16 161/96 H 100 Oxymask 09/10/22 12:10 60 16 155/95 H 100 Oxymask 09/10/22 12:00 74 17 148/94 H 100 Oxymask 09/10/22 11:54 36.2 C L 77 17 148/98 H 100 Oxymask 09/10/22 09:07 37 C 62 20 147/91 H 99 Room Air O2 Flow Rate 09/10/22 13:40 09/10/22 13:20 4 09/10/22 13:10 09/10/22 13:00 09/10/22 12:50 09/10/22 12:40 09/10/22 12:30 5 09/10/22 12:20 5 09/10/22 12:10 5 09/10/22 12:00 5 09/10/22 11:54 5 09/10/22 09:07 Pain Intensity Abdomen: Pain Intensity: 7 Transfer of Care Handoff Completed per policy Notes Mental Status: alert / awake / arousable and participated in evaluation Patient Amnestic to Procedure: Yes Nausea / Vomiting: adequately controlled Pain: adequately controlled Airway Patency, RR, SpO2: stable & adequate BP & HR: stable & adequate Hydration State: stable & adequate Anesthetic Complications: no major complications apparent and Pt Satisfied with anesthetic care
[2022-09-10] MEDS: LACTATED RINGER'S 1,000 ML IV SCH (14:26)
[2022-09-10] MEDS: ACETAMINOPHEN 325 MG TAB PO SCH ×2 (14:26→20:48)
[2022-09-10] MEDS: MoRPHine SULFATE 4 MG/ML 1 ML CARP\\VIAL IV PRN ×3 (16:44→22:17)
[2022-09-10] MEDS: ceFAZolin 2000MG 2,000 MG/15 ML SYR IV SCH (17:23)
[2022-09-10] MEDS: HYDROcodone/ACETAMINOPHEN 10/325 TAB PO PRN (18:26)
[2022-09-10] MEDS: HEPARIN SOD 5,000 UNIT/0.5 ML VIAL SQ SCH (20:49)
[2022-09-10] MEDS: DOCUSATE SODIUM 100 MG CAP PO SCH (20:49)
[2022-09-10] MEDS ORDERED: diazePAM 2 MG TABLET PO ONE (22:26)
[2022-09-11] MEDS: HYDROcodone/ACETAMINOPHEN 10/325 TAB PO PRN ×2 (00:04→06:20)
[2022-09-11] MEDS: LACTATED RINGER'S 1,000 ML IV SCH (00:05)
[2022-09-11] MEDS: ceFAZolin 2000MG 2,000 MG/15 ML SYR IV SCH (02:06)
[2022-09-11] MEDS: MoRPHine SULFATE 4 MG/ML 1 ML CARP\\VIAL IV PRN (02:50)
[2022-09-11] MEDS: ACETAMINOPHEN 325 MG TAB PO SCH ×2 (03:24→04:00)
[2022-09-11 08:31] LABS: Basophils # (auto) 0.03 K/uL (0-0.2); Basophils % (auto) 0.3 %; Eosinophils # (auto) 0.01 K/uL (0-0.50); Eosinophils % (auto) 0.1 %; Hematocrit (blood only) 37.3 % (37.0-47.0); Hemoglobin 12.7 g/dl (12.0-16.0); Immature Granulocytes # (auto) 0.04 K/uL (0.01-0.20); Immature Granulocytes % (auto) 0.4 %; Lymphocytes % (auto) 21.7 %; Mean Corpuscular Hemoglobin 29.1 pg (25.0-34.0); Mean Corpuscular Volume 85.4 fL (80.0-100.0); Mean Platelet Volume 9.5 fL (9.4-12.4); Monocytes # (auto) 1.18 K/uL (0.11-0.59); Monocytes % (auto) 10.7 %; Neutrophils # (auto) 7.38 K/uL (1.40-6.50); Neutrophils % (auto) 66.8 %; Platelet Count 273 K/uL (130-400); RDW Coefficient of Variation 12.9 % (11.5-14.5); RDW Standard Deviation 39.7 fL (36.4-46.3); Red Blood Count 4.37 M/uL (4.20-5.40); White Blood Count 11.04 K/ul (4.8-10.8)
[2022-09-11] MEDS: DOCUSATE SODIUM 100 MG CAP PO SCH (09:07)
[2022-09-11 09:08] LABS: BUN Creatinine Ratio 9.2 (10-20); Calcium 8.7 mg/dl (8.6-10.3); Creatinine Clr Calc Pharmacy 62.6 ml/min; Est GFR (African American) 64.1 ml/min; Est GFR (Non-African American) 55.3 ml/min; Potassium 3.6 mmol/L (3.5-5.1)
[2022-09-11] MEDS: HEPARIN SOD 5,000 UNIT/0.5 ML VIAL SQ SCH (09:08)
[2022-09-11] MEDS ORDERED: KETOROLAC TROMETHAMINE 15 MG/ML VIAL IV ONE (10:25)
--- NOTE | 2022-09-11 10:32 | Discharge Summary ---
Date of Service September 11, 2022 Admission HPI Per Admitting Provider Patient with a 4.5cm right upper/mid pole mass, suspected RCC. We will plan to move forward with a right hand-assisted lap nephrectomy. Admission Exam Per Admitting Provider Constitutional well developed and well nourished Neck neck nontender Respiratory normal respiratory effort; no respiratory distress and does not use accessory muscles Cardiovascular Rate/Rhythm: regular rate Vessels: radial pulses present Extremities: no edema Gastrointestinal (Abdomen) Inspection/Auscultation: abdomen normal to inspection Percussion/Palpation: abdomen soft; abdomen nontender and no guarding Musculoskeletal Head/Neck/Chest: normocephalic and head atraumatic Extremities: extremities normal to inspection Skin no rashes and no lesions Trauma: no evidence of skin trauma Neurologic awake; not obtunded Speech / Cognition: normal speech Motor/Sensory: no tremor Psychiatric Orientation: alert and oriented x 3 Lymphatic no lymphadenopathy Principal Diagnosis Renal Mass Discharge Exam General: well-appearing, no acute distress HEENT: Normocephalic, mucous membranes moist Pulmonary: Nonlabored respirations Abdomen: Nondistended Extremities: Moves all 4 spontaneously Neuro: No gross deficits Psych: alert and oriented, normal mood Skin: Warm, dry, no rashes noted Discharge Data Allergies Allergy/AdvReac Type Severity Reaction Status Date / Time No Known Allergies Allergy Verified 09/10/22 09:09 Procedures Performed Operation Date: 09/10/22 09:40 Actual Procedures p Right Laparoscopic Hand Assisted Nephrectomy(Right) - Lito Grayson MD Hospital Course (1) Kidney tumor: Plan Postop day 1 status post right nephrectomy with Dr. Grayson for suspected renal malignancy Afebrile, stable vitals Labs reviewedcreatinine 1.2, WBC 11.04, hemoglobin 12.7 Some incisional discomfort, adequately controlled with prn analgesia Tolerating PO diet Patient ambulating Voiding after catheter removal this morning Anticipate home later this AM if she continues to progress as expected Patient ready for discharge upon reassessment, orders placed Expected clinical course reviewed, all questions answered Total Time Total Time Spent Total Time Spent (In Minutes): 29 Discharge Plan Discharge Items Patient Disposition: Home - Self-Care Reason For Visit: Kidney Tumor Discharge Diagnosis: Kidney Tumor Activity: Per Instructions section Lifting: No more than 25 pounds Bathing Comment: Okay to shower after discharge Sexual Activity: Wait until after follow-up appointment Exercise/Sports: Wait until after follow-up appointment Driving/Machine Use: No driving while taking prescription pain medication Non-emergency contact: Surgeon and Urologist Call non-emergency contact if: your pain is not controlled, you have a fever, your temperature is above 101, your wound has increased redness, your wound has increased drainage and your wound pain has increased Follow-up/Referrals: Magda Londono MD [Primary Care Provider] - Diet: Regular Addtl Attending Provider Instructions: Please take all medications as prescribed and keep all follow-ups as scheduled. Please call our office at [phone] with any questions, concerns or need to reschedule appointments for any reason. We are happy to assist you. Recovering at home: We recommend having someone with you for the first few days after surgery to help care for you. It is okay to shower tomorrow. Please avoid swimming, bathing or using hot tub until incisions are well healed. Avoid driving until you are not requiring pain medication any further. Walk at least a few times a day. Increase your distance, as you feel able. Stairs in your home are okay. Please avoid strenuous or sexual activity until your follow-up. We recommend using stool softener (i.e. Colace) to prevent constipation and straining, especially the first two weeks post operatively. Call [facility] at [phone] if you experience: Chest pain or trouble breathing (call 750 or go to the hospital). Fever of 101F or higher Symptoms of infection at incision site, including redness or swelling, warmth, or bad-smelling drainage If you have catheter, and you notice: o Bloody urine or drainage that is dark red or has large clots (Please remember a small amount of blood is normal) o No drainage from the catheter for more than 6 hours o The catheter comes out of your bladder Pain that is not controlled with medicines Pending Studies at Discharge: Yes Studies:: Pathology Stand-Alone Forms: My Smart Checkout, Smoking Cessation Medications and DC Order Prescriptions: New docusate sodium [Colace] 100 mg capsule 100 mg PO BID Qty: 60 0RF Rx Instructions: Take twice daily for 2 weeks, then as needed for constipation. methocarbamol 500 mg tablet 500 mg PO Q8H PRN (Reason: pain) Qty: 7 0RF hydrocodone-acetaminophen 10-325 mg tablet 1 tab PO Q8H PRN (Reason: pain) Qty: 14 0RF Rx Instructions: post op pain Continued calcium carbonate-vitamin D3 [Calcium 600 with Vitamin D3] 600 mg(1,500mg) - 500 unit capsule 1 cap PO QAM Mirena 20 mcg/24 hours (5 yrs) 52 mg intrauterine device See Rx Instructions .ROUTE .COMPLEX Rx Instructions: IUD methocarbamol 500 mg tablet 500 mg PO TID PRN (Reason: muscle spasms) fluticasone propionate 50 mcg/actuation spray,suspension 1 spray INTNAS DAILY PRN (Reason: allergies) phentermine 37.5 mg tablet 37.5 mg PO QAM albuterol sulfate [ProAir HFA] 90 mcg/actuation HFA aerosol inhaler 2 puff INH UD PRN (Reason: shortness of breath or wheezing) Rx Instructions: 2 puff inhalation q4-6 hrs PRN; Neuriva Plus Brain Performance 1.7 mg-400 mcg- 2.4 mcg Capsule 1 cap PO QAM Held ibuprofen 200 mg tablet 200 mg PO Q6H PRN (Reason: Pain) Hold Instructions: Resume on 09/18/22. Discharge Orders: Discharge Order (Routine); Ordered 09/11/22 Ordered By: Marga Thompson/Other Patient Handouts: Healthy Kidneys, Monitoring Kidney Health, ED Tumor, Uncertain Cause Admission Data Admit Date/Time: 09/10/22 11:39 Attending Provider: Lito Grayson Admit Provider: Lito Grayson Primary Care Provider: Magda Londono Other Interventions: Discharge Summary Assessment (RN) Last Done: 09/11/22 10:41 Coding Level of Care Code 08760 IN/OBS DISCH 30 MIN/LESS Diagnoses Kidney tumor D49.519 Time Spent (min) 29
[2022-09-11] MEDS ORDERED: KETOROLAC TROMETHAMINE 15 MG/ML VIAL IM STA (10:39)
--- NOTE | 2022-09-11 12:32 | Urology Progress Note ---
Date of Service September 11, 2022 Assessment & Plan (1) Kidney tumor: Plan: Postop day #1 status post right radical nephrectomy Progressing appropriately Plan for discharge home today after void Admission and Anticipated Discharge Date Admission Date: September 10, 2022 Subjective Did okay overnight Had expected levels of pain, sleep to be very uncomfortable at the lower margin of her rib cageI have reassured her that this will improve with time Incisions are appropriate and she had made excellent quantities of urine overnight Labs are stable and appropriate given her recent surgery Physical Exam Physical Exam: Incisions appropriate, abdomen soft Urine clear Results & Data Vital Signs (Past 12 Hours) Vital Signs Temp Pulse Resp BP BP Pulse Ox O2 Del Method 09/11/22 10:41 36.4 C L 64 16 122/78 131/90 97 09/11/22 07:35 36.4 C L 64 16 122/78 97 Room Air 09/11/22 04:00 36.7 C 58 L 18 123/81 97 Room Air PG Care Time/CCT Total # of Minutes Spent Total Time Spent with Patient: Total time spent is greater than 50% in coordination of care (as documented) at patient's floor/unit and/or counseling patient: Coding Level of Care Code None Diagnoses Kidney tumor D49.519
== END 2022-09-11 11:32 | disposition home or self-care (01) ==
LOC: ASU 08:30 → INTOOBSV 11:39 → 3W 11:39